=== PATIENT | male | born 1960 | race Caucasian/White ===

== ENCOUNTER 2017-04-15 04:09 | Emergency (ER) | payer OTHER, MEDICAID ==
[~2017-04-15] VITALS: Ht 167.6 cm; Wt 100.0 kg
[~2017-04-15 04:09] MED LIST: ADVAI250I PO; LOVA10TA PO; PROT40TA PO; RANI150T PO; SERO50TA PO
[2017-04-15 04:11] VITALS: BP 190/88; PULSE 63; RESP 20; TEMP 97.8; O2SAT 98
[2017-04-15] MEDS ORDERED: QUET5TAB PO (04:52)
[2017-04-15] MEDS ORDERED: PROT40TA PO (04:52)
[2017-04-15] MEDS ORDERED: RANI150T PO (04:52)
[2017-04-15] MEDS ORDERED: ADVA250A INH (04:52)
[2017-04-15] MEDS ORDERED: SODIUM CHLOR 0.9% 1000 ML INJ 1,000 ML IV SCH (05:03)
[2017-04-15] MEDS ORDERED: ONDANSETRON HCL 4 MG/2 ML VIAL IVP ONE (05:15)
[2017-04-15 05:23] LABS: AUTOMATED NEUTROPHIL # 8.1 TH/MM3 (1.8-7.7); BASOPHIL % 0.3 % (0.0-2.0); EOSINOPHIL # 0.1 TH/MM3 (0-0.4); EOSINOPHIL % 0.5 % (0.0-4.0); HEMATOCRIT 43.1 % (39.0-51.0); HEMO FLAGS DIFF FINAL; LYMPH % 17.5 % (9.0-44.0); LYMPHOCYTE # 1.9 TH/MM3 (1.0-4.8); MEAN CORPUSCULAR HEMOGLOBIN 29.9 PG (27.0-34.0); MONO % 7.5 % (0.0-8.0); NEUT % 74.2 % (16.0-70.0); PLATELET COUNT 228 TH/MM3 (150-450); WHITE BLOOD COUNT 10.9 TH/MM3 (4.0-11.0)
[2017-04-15] MEDS: SODIUM CHLORIDE 0.9% FLUSH 10 ML FLUSH IV FLUSH PRN ×2 (05:30→06:50)
[2017-04-15 05:47] LABS: ALT (GPT) 29 U/L (12-78); ANION GAP 11 MEQ/L (5-15); AST (GOT) 20 U/L (15-37); BICARBONATE 24.9 MEQ/L (21.0-32.0); BLOOD UREA NITROGEN 15 MG/DL (7-18); CHLORIDE 104 MEQ/L (98-107); GLOMERULAR FILTRATION RATE 100 ML/MIN (>89); POTASSIUM 3.9 MEQ/L (3.5-5.1); SODIUM (NA) 140 MEQ/L (136-145)
[2017-04-15 05:48] LABS: ALKALINE PHOSPHATASE 60 U/L (45-117); TOTAL BILIRUBIN ADULT 0.5 MG/DL (0.2-1.0)
[2017-04-15 05:54] LABS: APTT (PATIENT) 30.9 SEC (24.3-30.1); PROTHROMBIN TIME - PATIENT 11.4 SEC (9.8-11.6)
[2017-04-15] MEDS ORDERED: MORPHINE SULFATE 4 MG/ML INJ IV PUSH ONE (06:00)
[2017-04-15] MEDS ORDERED: IOHEXOL 350 MG/ML 10 ML VIAL (for RAD DIAG) IV ONE (06:18)
--- NOTE | 2017-04-15 06:20 | PD ---
HPI Chief Complaint: GI Complaint Time Seen by Provider: 05:25 Travel History International Travel<30 days: No Contact w/Intl Traveler<30days: No Traveled to known affect area: No History of Present Illness HPI Patient is a 56-year-old male who presents to emergency room with complaints of abdominal pain. Patient reports that abdominal pain began yesterday around noontime, the pain is diffuse, reports that he has had nausea vomiting with the symptoms. Patient reports that he has had similar pains in the past, reports that he went to his primary care doctor's office and was given an injection of medication and his pain completely resolved. Patient reports that he is unsure what set off his abdominal pain at this time, reports that his family members ate similar foods to him and he's the only one sick. Patient denies any fevers or chills, denies any constipation or diarrhea. Patient denies any chest pain or shortness of breath. PFSH Past Medical History Asthma: Yes Anxiety: Yes Depression: Yes Diminished Hearing: No GERD: Yes Respiratory: Yes Sleep Apnea: Yes (CPAP) Tetanus Vaccination: Unknown Past Surgical History Abdominal Surgery: Yes (hernia) Tonsillectomy: Yes Social History Alcohol Use: Yes (rarely) Tobacco Use: No Substance Use: No Allergies-Medications (Allergen,Severity, Reaction): Coded Allergies: No Known Allergies (Unverified , 04/15/17) Reported Meds & Prescriptions Reported Meds & Active Scripts Active Reported Ranitidine (Ranitidine HCl) 150 Mg Tab 150 Mg PO DAILY Protonix (Pantoprazole Sodium) 40 Mg Tab 40 Mg PO DAILY Quetiapine (Quetiapine Fumarate) 50 Mg Tab 50 Mg PO DAILY Advair Diskus Inh (Fluticasone-Salmeterol Inh) 250-50 Mcg/Blist Aer 1 Puff INH BID Rinse mouth after use. Review of Systems General / Constitutional: No: Fever Eyes: No: Visual changes HENT: No: Headaches Cardiovascular: No: Chest Pain or Discomfort Respiratory: No: Shortness of Breath Gastrointestinal: Positive: Nausea, Vomiting, Abdominal Pain Genitourinary: No: Dysuria Musculoskeletal: No: Pain Skin: No Rash Neurologic: No: Weakness Psychiatric: No: Depression Endocrine: No: Polydipsia Hematologic/Lymphatic: No: Easy Bruising Physical Exam Narrative GENERAL: Mild distress SKIN: Focused skin assessment warm/dry. HEAD: Atraumatic. Normocephalic. EYES: Pupils equal and round. No scleral icterus. No injection or drainage. ENT: No nasal bleeding or discharge. Mucous membranes pink and moist. NECK: Trachea midline. No JVD. CARDIOVASCULAR: Regular rate and rhythm. No murmur appreciated. RESPIRATORY: No accessory muscle use. Clear to auscultation. Breath sounds equal bilaterally. GASTROINTESTINAL: Abdomen soft, diffusely tender, no peritonitis MUSCULOSKELETAL: No obvious deformities. No clubbing. No cyanosis. No edema. NEUROLOGICAL: Awake and alert. No obvious cranial nerve deficits. Motor grossly within normal limits. Normal speech. PSYCHIATRIC: Appropriate mood and affect; insight and judgment normal. Data Data Last Documented VS Vital Signs Date Time Temp Pulse Resp B/P Pulse Ox O2 Delivery O2 Flow Rate FiO2 04/15/17 04:11 97.8 63 20 190/88 98 Room Air Orders Complete Blood Count With Diff (04/15/17 05:03) Comprehensive Metabolic Panel (04/15/17 05:03) Lipase (04/15/17 05:03) Prothrombin Time / Inr (Pt) (04/15/17 05:03) Act Partial Throm Time (Ptt) (04/15/17 05:03) Urinalysis - C+S If Indicated (04/15/17 05:03) Iv Access Insert/Monitor (04/15/17 05:03) Ondansetron Inj (Zofran Inj) (04/15/17 05:15) Sodium Chlor 0.9% 1000 Ml Inj (Ns 1000 M (04/15/17 05:03) Sodium Chloride 0.9% Flush (Ns Flush) (04/15/17 05:15) Ct Abd/Pel W Iv Contrast(Rout) (04/15/17 05:48) Morphine Inj (Morphine Inj) (04/15/17 06:00) Iohexol 350 Inj (Omnipaque 350 Inj) (04/15/17 06:18) Ketorolac Inj (Toradol Inj) (04/15/17 06:45) Famotidine Inj (Pepcid Inj) (04/15/17 06:45) Al-Mag Hy-Si 40-40-4 Mg/Ml Liq (Mag-Al P (04/15/17 06:45) Lidocaine 2% Viscous (Xylocaine 2% Visco (04/15/17 06:45) Labs Laboratory Tests Test 04/15/17 05:00 White Blood Count 10.9 TH/MM3 Red Blood Count 4.90 MIL/MM3 Hemoglobin 14.7 GM/DL Hematocrit 43.1 % Mean Corpuscular Volume 88.0 FL Mean Corpuscular Hemoglobin 29.9 PG Mean Corpuscular Hemoglobin 34.0 % Concent Red Cell Distribution Width 13.0 % Platelet Count 228 TH/MM3 Mean Platelet Volume 9.7 FL Neutrophils (%) (Auto) 74.2 % Lymphocytes (%) (Auto) 17.5 % Monocytes (%) (Auto) 7.5 % Eosinophils (%) (Auto) 0.5 % Basophils (%) (Auto) 0.3 % Neutrophils # (Auto) 8.1 TH/MM3 Lymphocytes # (Auto) 1.9 TH/MM3 Monocytes # (Auto) 0.8 TH/MM3 Eosinophils # (Auto) 0.1 TH/MM3 Basophils # (Auto) 0.0 TH/MM3 CBC Comment DIFF FINAL Differential Comment Prothrombin Time 11.4 SEC Prothromb Time International 1.0 RATIO Ratio Activated Partial 30.9 SEC Thromboplast Time Sodium Level 140 MEQ/L Potassium Level 3.9 MEQ/L Chloride Level 104 MEQ/L Carbon Dioxide Level 24.9 MEQ/L Anion Gap 11 MEQ/L Blood Urea Nitrogen 15 MG/DL Creatinine 0.80 MG/DL Estimat Glomerular Filtration 100 ML/MIN Rate Random Glucose 135 MG/DL Calcium Level 8.9 MG/DL Total Bilirubin 0.5 MG/DL Aspartate Amino Transf 20 U/L (AST/SGOT) Alanine Aminotransferase 29 U/L (ALT/SGPT) Alkaline Phosphatase 60 U/L Total Protein 7.6 GM/DL Albumin 4.0 GM/DL Lipase 181 U/L [facility] Medical Decision Making Medical Screen Exam Complete: Yes Emergency Medical Condition: Yes Interpretation(s) Vital Signs Date Time Temp Pulse Resp B/P Pulse Ox O2 Delivery O2 Flow Rate FiO2 04/15/17 04:11 97.8 63 20 190/88 98 Room Air Differential Diagnosis Gastroenteritis, colitis, appendicitis, cholecystitis, GERD Narrative Course Patient is a 56-year-old male who presents to emergency room with complaints of abdominal pain which began around noontime yesterday. Patient reports diffuse abdominal pain with nausea and vomiting. Patient denies history of abdominal surgeries in the past. Patient appears uncomfortable at bedside, labs as well as CT of abdomen and pelvis ordered. Will continue to monitor patient. Laboratory Tests Test 04/15/17 05:00 White Blood Count 10.9 TH/MM3 (4.0-11.0) Red Blood Count 4.90 MIL/MM3 (4.50-5.90) Hemoglobin 14.7 GM/DL (13.0-17.0) Hematocrit 43.1 % (39.0-51.0) Mean Corpuscular Volume 88.0 FL (80.0-100.0) Mean Corpuscular Hemoglobin 29.9 PG (27.0-34.0) Mean Corpuscular Hemoglobin 34.0 % Concent (32.0-36.0) Red Cell Distribution Width 13.0 % (11.6-17.2) Platelet Count 228 TH/MM3 (150-450) Mean Platelet Volume 9.7 FL (7.0-11.0) Neutrophils (%) (Auto) 74.2 % (16.0-70.0) Lymphocytes (%) (Auto) 17.5 % (9.0-44.0) Monocytes (%) (Auto) 7.5 % (0.0-8.0) Eosinophils (%) (Auto) 0.5 % (0.0-4.0) Basophils (%) (Auto) 0.3 % (0.0-2.0) Neutrophils # (Auto) 8.1 TH/MM3 (1.8-7.7) Lymphocytes # (Auto) 1.9 TH/MM3 (1.0-4.8) Monocytes # (Auto) 0.8 TH/MM3 (0-0.9) Eosinophils # (Auto) 0.1 TH/MM3 (0-0.4) Basophils # (Auto) 0.0 TH/MM3 (0-0.2) CBC Comment DIFF FINAL Differential Comment Prothrombin Time 11.4 SEC (9.8-11.6) Prothromb Time International 1.0 RATIO Ratio Activated Partial 30.9 SEC Thromboplast Time (24.3-30.1) Sodium Level 140 MEQ/L (136-145) Potassium Level 3.9 MEQ/L (3.5-5.1) Chloride Level 104 MEQ/L (98-107) Carbon Dioxide Level 24.9 MEQ/L (21.0-32.0) Anion Gap 11 MEQ/L (5-15) Blood Urea Nitrogen 15 MG/DL (7-18) Creatinine 0.80 MG/DL (0.60-1.30) Estimat Glomerular Filtration 100 ML/MIN Rate (>89) Random Glucose 135 MG/DL (74-106) Calcium Level 8.9 MG/DL (8.5-10.1) Total Bilirubin 0.5 MG/DL (0.2-1.0) Aspartate Amino Transf 20 U/L (15-37) (AST/SGOT) Alanine Aminotransferase 29 U/L (12-78) (ALT/SGPT) Alkaline Phosphatase 60 U/L (45-117) Total Protein 7.6 GM/DL (6.4-8.2) Albumin 4.0 GM/DL (3.4-5.0) Lipase 181 U/L (73-393) Last Impressions Abdomen/Pelvis CT 04/15/17 0548 Signed Impressions: Service Date/Time: Saturday, April 15, 2017 06:02 - CONCLUSION: Essentially unremarkable study except for slight atherosclerotic vascular calcifications. Mae Fernández MD Patient reevaluated, patient reports that he is feeling much better at this time. Labs are benign, CT abdomen and pelvis with no acute process vital signs are stable.. Abdomen is soft, nontender, nondistended, no peritoneal signs. Reviewed all labs and all studies with patient in detail. Plan to have patient follow up with GI as outpatient, patient will return to the emergency room if he develops any signs of an acute abdomen. Signs and symptoms of when to return to the emergency room was reviewed with him in detail. Patient thankful for help. Diagnosis Primary Impression: Abdominal pain Qualified Code: R10.84 - Generalized abdominal pain Referrals: Lalito Ortiz MD Patient Instructions: General Instructions, Narcotic given in the ED Additional Instructions: Please follow-up with your primary care doctor in 2-3 days Please follow-up with [facility] as soon as possible Return to emergency room if symptoms worsen or persist Return to the emergency room as needed Med/Other Pt SpecificInfo: Prescription(s) given Scripts Omeprazole 40 Mg Cap40 Mg PO DAILY #30 CAP Ref 0 Prov:Elizabeth Guaman DO 04/15/17 Disposition: 01 DISCHARGE HOME Condition: Stable Elizabeth Guaman DO April 15, 2017 06:20
--- NOTE | 2017-04-15 06:30 | RADRPT ---
EXAM DATE/TIME: 04/15/2017 06:02 [facility] COMPARISON: CT ABDOMEN & PELVIS W CONTRAST, June 26, 2016, 7:20. INDICATIONS : Upper-medial abdominal pain with vomiting. IV CONTRAST: 96 cc Omnipaque 350 (iohexol) IV ORAL CONTRAST: No oral contrast ingested. RADIATION DOSE: 18.73 CTDIvol (mGy) MEDICAL HISTORY : Gastroesophageal reflux disease. SURGICAL HISTORY : Hernia repair. ENCOUNTER: Initial ACUITY: 2 days PAIN SCALE: 5/10 LOCATION: upper quadrant abdomen TECHNIQUE: Volumetric scanning of the abdomen and pelvis was performed. Using automated exposure control and ad justment of the mA and/or kV according to patient size, radiation dose was kept as low as reasonably achievable to obtain optimal diagnostic quality images. FINDINGS: CT Abdomen: The liver, spleen, pancreas, kidneys, adrenals are unremarkable. There is no evidence for any appreciable pathological adenopathy, free fluid, or bowel obstruction. Slight scar and/or atelec tasis is seen in the right middle lobe and lingula. Chronic vascular calcifications are present invol ving the aorta, iliac arteries without any significant stenosis or aneurysmal dilatations for techniq ue. CT pelvis: There is no evidence for mass, abscess formation, or any significant adenopathy within the pelvis. The prostate gland is inhomogeneous and measures 3.3 x 4.0 cm in AP and transverse diameters and nonspecific. CONCLUSION: Essentially unremarkable study except for slight atherosclerotic vascular calcificati ons. K. Tamir Fernández MD on April 15, 2017 at 6:25 Board Certified Radiologist. This report was verified electronically.
[2017-04-15] MEDS ORDERED: OMEP40CA2 PO (06:39)
[2017-04-15] MEDS ORDERED: LIDOCAINE VISCOUS 2% SOLN 15 ML UDC PO ONE (06:45)
[2017-04-15] MEDS ORDERED: ALUMINUM/MAGNESIUM/SIMETH 30 ML CUP PO ONE (06:45)
[2017-04-15] MEDS ORDERED: KETOROLAC TROMETHAMINE 60 MG/2 ML (IM) VIAL IM ONE (06:45)
[2017-04-15] MEDS ORDERED: FAMOTIDINE 20 MG/2 ML VIAL IV PUSH ONE (06:45)
[2017-04-15 07:25] LABS: BLOOD, URINE NEG (NEG); COMMENT (UR) CULT NOT INDICATED; CULTURE IF INDICATED CULT NOT INDICATED; GLUCOSE,URINE NEG (NEG); KETONE, URINE NEG (NEG); NITRITE,URINE NEG (NEG); PH, URINE 6.5 (5.0-8.5); SQUAMOUS EPITHELIAL CELL URINE <1 /hpf (0-5); URINE COLOR YELLOW (YELLW/STRAW)
== END 2017-04-15 06:55 | disposition home or self-care (01) ==
LOC: NEPE 04:09
DX: R10.84 Generalized abdominal pain (principal)
CPT/HCPCS: 74177; 80053; 81001; 83690; 85025; 85610; 85730; 96361; 96372; 96374; 96375; 99285; J1885; J2270; J2405; J7030; Q9967